=== PATIENT | male | born 1990 | race Caucasian/White ===

== ENCOUNTER 2017-06-25 20:06 | Emergency (ER) | payer SELFPAY ==
[2017-06-25] MEDS ORDERED: Ondansetron 4 MG/2 ML SDV IVPUSH ONE (20:45)
[2017-06-25] MEDS ORDERED: Sodium Chloride 0.9% 1,000 ML IV SCH (20:45)
[2017-06-25] MEDS ORDERED: HYDROmorphone 0.5 MG/0.5 ML SYRINGE IVPUSH STA ×2 (20:46→22:14)
--- NOTE | 2017-06-25 20:48 | EDM.PDOC ---
ED HPI GENERAL MEDICAL PROBLEM - General Chief Complaint: Abdominal Pain Stated Complaint: ABDOMINAL PAIN Time Seen by Provider: 06/25/17 20:31 Source of Information: Reports: Patient History Limitations: Reports: No Limitations - History of Present Illness INITIAL COMMENTS - FREE TEXT/NARRATIVE: The patient states that he developed mid-right abdominal pain around 02:00 this morning, while he was working. It migrated to his right lower quadrant around 03 :30, where it has remained. It is sharp in character. It is constant, but worse with most movements. He then developed nausea and emesis around 04:00, and has had chills on and off all day. No recent constipation, diarrhea, or urinary symptoms. No prior similar symptoms. The patient's last oral solid food was around 15:30 this afternoon. His last oral fluid intake was around 18:30 tonight. The patient does not have a PCP. Right Lower Abdomen Pain Score (Numeric/FACES): 8 - Related Data Allergies Allergy/AdvReac Type Severity Reaction Status Date / Time No Known Allergies Allergy Verified 06/25/17 20:15 Home Meds: Home Meds . [No Known Home Meds] 06/25/17 [History] Past Medical History Psychiatric History: Reports: Bipolar (untreated), Depression (untreated), PTSD (untreated) - Past Surgical History HEENT Surgical History: Reports: Oral Surgery (One wisdom tooth extracted), Tonsillectomy Social & Family History - Tobacco Use Smoking Status *Q: Current Every Day Smoker Years of Tobacco use: 8 Packs/Tins Daily: 1.5 Packs/Tins Daily Comment: Down from 3 ppd - Caffeine Use Caffeine Use: Reports: Coffee - Alcohol Use Alcohol Use History: Yes Alcohol Use Frequency: Socially - Recreational Drug Use Recreational Drug Use: Yes Drug Use in Last 12 Months: No Recreational Drug Type: Reports: Cocaine (last June 2016), Marijuana/Hashish ( last Jan 2017), Methamphetamine (last Jan 2017) - Living Situation & Occupation Living situation: Reports: Single, with Family (Mother + 2 siblings) Occupation: Employed (supervisor inventory merchandising, [employer]) ED ROS GENERAL - Review of Systems Review Of Systems: ROS reveals no pertinent complaints other than HPI. ED EXAM, GI/ABD - Physical Exam Exam: See Below Exam Limited By: No Limitations General Appearance: Alert, WD/WN, No Apparent Distress Eyes: Bilateral: Normal Appearance, EOMI Ears: Normal External Exam, Hearing Grossly Normal Nose: Normal Inspection, No Blood Throat/Mouth: Normal Inspection, Normal Lips, Normal Voice, No Airway Compromise Head: Atraumatic, Normocephalic Neck: Normal Inspection, Full Range of Motion Respiratory/Chest: No Respiratory Distress, Lungs Clear, Normal Breath Sounds, No Accessory Muscle Use Cardiovascular: Normal Peripheral Pulses, Regular Rate, Rhythm, No Edema, No Gallop, No JVD, No Murmur, No Rub GI/Abdominal Exam: Normal Bowel Sounds, Soft, No Organomegaly, No Distention, No Abnormal Bruit, No Mass, Tender (RLQ only, but Rovsing sign present), Other ( Obturator sign present. Psoas sign present. Heel drop sign positive.) (Male) Exam: Deferred Rectal (Males) Exam: Deferred Back Exam: Normal Inspection, Full Range of Motion, NT Extremities: Normal Inspection, Normal Range of Motion, No Pedal Edema, Normal Capillary Refill Neurological: Alert, Oriented, Normal Cognition, No Motor/Sensory Deficits Psychiatric: Normal Affect Skin Exam: Warm, Dry, Intact, Normal Color, No Rash Course - Vital Signs Last Recorded V/S: Last Vital Signs Temp 37.2 C 06/25/17 20:13 Pulse 78 06/25/17 20:13 Resp 18 06/25/17 20:13 BP 142/79 H 06/25/17 20:13 Pulse Ox 98 06/25/17 20:13 - Orders/Labs/Meds Orders: Active Orders 24 hr Category Date Time Status Abdomen Pelvis w Cont [CT] Stat Exams 06/25/17 20:45 Taken Sodium Chloride 0.9% [Normal Saline] 1,000 ml Med 06/25/17 20:45 Active IV ASDIRECTED Sodium Chloride 0.9% [Saline Flush] Med 06/25/17 21:40 Active 10 ml FLUSH ONETIME PRN Medication Orders Sodium Chloride (Normal Saline) 1,000 mls @ 150 mls/hr IV ASDIRECTED THU Last Admin: 06/25/17 20:54 Dose: 150 mls/hr Sodium Chloride (Saline Flush) 10 ml FLUSH ONETIME PRN PRN Reason: IV Flush Last Admin: 06/25/17 22:08 Dose: 10 ml Labs: Laboratory Tests 03/22/18 03/22/18 03/22/18 Range/Units 20:30 20:45 20:45 WBC 10.07 H (4.23-9.07) K/mm3 RBC 4.45 L (4.63-6.08) M/mm3 Hgb 13.5 L (13.7-17.5) gm/L Hct 40.1 (40.1-51.0) % MCV 90.1 (79.0-92.2) fl MCH 30.3 (25.7-32.2) pg MCHC 33.7 (32.2-35.5) g/dl RDW Std Deviation 44.1 H (35.1-43.9) fL Plt Count 316 (163-337) K/mm3 MPV 9.9 (9.4-12.3) fl Neutrophils % (Manual) 64 H (40-60) % Band Neutrophils % 1 (0-10) % Lymphocytes % (Manual) 33 (20-40) % Atypical Lymphs % 0 % Monocytes % (Manual) 1 L (2-10) % Eosinophils % (Manual) 1 (0.8-7.0) % Basophils % (Manual) 0 L (0.2-1.2) Platelet Estimate Adequate RBC Morph Comment Normal Sodium 139 (136-145) mEq/L Potassium 4.2 (3.5-5.1) mEq/L Chloride 102 (98-107) mEq/L Carbon Dioxide 27 (21-32) mEq/L Anion Gap 14.2 (5-15) BUN 18 (7-18) mg/dL Creatinine 0.9 (0.7-1.3) mg/dL Est Cr Clr Drug Dosing 131.31 mL/min Estimated GFR (MDRD) > 60 (>60) mL/min BUN/Creatinine Ratio 20.0 H (14-18) Glucose 93 (74-106) mg/dL Calcium 9.2 (8.5-10.1) mg/dL Total Bilirubin 0.3 (0.2-1.0) mg/dL AST 24 (15-37) U/L ALT 32 (16-63) U/L Alkaline Phosphatase 96 (46-116) U/L Total Protein 7.6 (6.4-8.2) g/dl Albumin 4.1 (3.4-5.0) g/dl Globulin 3.5 gm/dL Albumin/Globulin Ratio 1.2 (1-2) Lipase 96 (73-393) U/L Urine Color Yellow (Yellow) Urine Appearance Clear (Clear) Urine pH 6.0 (5.0-8.0) Ur Specific [place] 1.020 (1.005-1.030) Urine Protein Negative (Negative) Urine Glucose (UA) Negative (Negative) Urine Ketones Negative (Negative) Urine Occult Blood Negative (Negative) Urine Nitrite Negative (Negative) Urine Bilirubin Negative (Negative) Urine Urobilinogen 0.2 (0.2-1.0) Ur Leukocyte Esterase Trace H (Negative) Urine RBC 0-5 (0-5) /hpf Urine WBC 0-5 (0-5) /hpf Urine WBC Clumps Rare (NOT SEEN) /hpf Ur Epithelial Cells 0-5 (0-5) /hpf Urine Bacteria Rare (FEW) /hpf Urine Mucus Few (FEW) /hpf Meds: Medications Generic Name Dose Route Start Last Admin Trade Name Jinny PRN Reason Stop Dose Admin Sodium Chloride 1,000 mls @ 150 mls/hr 06/25/17 20:45 06/25/17 20:54 Normal Saline IV 150 mls/hr ASDIRECTED THU Administration Sodium Chloride 10 ml 06/25/17 21:40 06/25/17 22:08 Saline Flush FLUSH 10 ml ONETIME PRN Administration IV Flush Discontinued Medications Generic Name Dose Route Start Last Admin Trade Name Jinny PRN Reason Stop Dose Admin Diatrizoate Meglum/Diatrizoate Sod 90 ml 06/25/17 21:39 06/25/17 22:08 Gastrografin 37% PO 06/25/17 21:40 90 ml ONETIME ONE Administration Hydromorphone HCl 1 mg 06/25/17 20:46 06/25/17 20:58 Dilaudid IVPUSH 06/25/17 20:47 1 mg ONETIME STA Administration Hydromorphone HCl 1 mg 06/25/17 22:14 06/25/17 22:22 Dilaudid IVPUSH 06/25/17 22:15 1 mg ONETIME STA Administration Ibuprofen 600 mg 06/25/17 22:25 06/25/17 22:33 Motrin PO 06/25/17 22:26 600 mg ONETIME ONE Administration Iopamidol 125 ml 06/25/17 21:39 06/25/17 22:08 Isovue-300 (61%) IVPUSH 06/25/17 21:40 125 ml ONETIME ONE Administration Ondansetron HCl 4 mg 06/25/17 20:45 06/25/17 20:55 Zofran IVPUSH 06/25/17 20:46 4 mg ONETIME ONE Administration - Re-Assessments/Exams Free Text/Narrative Re-Assessment/Exam: 06/25/17 20:46 The patient has right lower quadrant abdominal pain that initially began as mid right abdominal pain around 02:00 this morning. He has had nausea and emesis, chills, and on examination, has tenderness in the right lower quadrant, along with Rovsing sign, obturator sign, psoas sign, and a positive heel drop sign. Clinically, the patient has a perforated appendix. I have ordered a workup including a CT scan of the abdomen and pelvis. He will receive Dilaudid, Zofran , and IV fluid, and we will keep him otherwise NPO. 06/25/17 22:22 CT of the abdomen and pelvis with oral and IV contrast is read by [facility] as "Mild mesenteric adenitis." Specifically, the Radiologist indicates that the appendix is normal. 06/25/17 22:29 I do not have the urinalysis results back yet, but presuming that the urinalysis is normal, I discussed the remainder of the workup with the patient. As above, it appears that he has mesenteric adenitis, usually caused by a virus. Recommended treatment is [id number] ibuprofen. The patient would like a note to be able to return to work this coming 06/27/2017. 06/25/17 23:28 The patient's urinalysis is normal. Departure - Departure Time of Disposition: 22:31 Disposition: Home, Self-Care 01 Condition: Fair Clinical Impression: Mesenteric adenitis - Discharge Information Referrals: PCP,None [Primary Care Provider] - Forms: ED Department Discharge, ED Return to Work/School Form Additional Instructions: You were seen in the emergency room for lower right abdominal pain, nausea, vomiting, and chills. Workup in the ER included blood work, a urinalysis, and a CT scan of your abdomen and pelvis. Your workup found that you have a condition called mesenteric adenitis, which is inflammation of your intestines, usually due to a virus. Unfortunately, there are no medicines to get rid of the virus - it will have to run its course. We recommend that you take [id number] ibuprofen, with food, as needed for abdominal discomfort. A note has been written that allows you to return to work this coming 06/27/2017. If any other problems, please do not hesitate to return to the ER. - My Orders Last 24 Hours: My Active Orders 06/25/17 20:45 Abdomen Pelvis w Cont [CT] Stat Sodium Chloride 0.9% [Normal Saline] 1,000 ml IV ASDIRECTED 06/25/17 21:40 Sodium Chloride 0.9% [Saline Flush] 10 ml FLUSH ONETIME PRN - Assessment/Plan Last 24 Hours: My Active Orders 06/25/17 20:45 Abdomen Pelvis w Cont [CT] Stat Sodium Chloride 0.9% [Normal Saline] 1,000 ml IV ASDIRECTED 06/25/17 21:40 Sodium Chloride 0.9% [Saline Flush] 10 ml FLUSH ONETIME PRN
[2017-06-25] MEDS ORDERED: Iopamidol 612 MG/ML 150 ML Bottle IVPUSH ONE (21:39)
[2017-06-25] MEDS ORDERED: Diatrizoate Meglumine/Diatrizoate Sodium 37% 120 ML Bottle PO ONE (21:39)
[2017-06-25] MEDS ORDERED: Sodium Chloride 0.9% 10 ML Syringe FLUSH PRN (21:40)
[2017-06-25] MEDS ORDERED: Ibuprofen 600 MG Tab PO ONE (22:25)
--- NOTE | 2017-06-26 08:45 | CT ---
CT abdomen and pelvis Technique: Multiple axial sections were obtained through the abdomen and pelvis. Intravenous and oral contrast was utilized. Delayed images were also obtained to the bladder. Comparison: No prior abdominal imaging. Findings: Visualized lung bases show nothing acute. Liver shows no focal parenchymal abnormality. Spleen appears within normal limits. Soft tissue nodule seen anterior along the superior spleen compatible with accessory splenic tissue. Adrenal glands show no nodule. Pancreas is within normal limits. Kidneys show symmetric contrast enhancement without hydronephrosis. Possible small nonobstructing stone is noted within the left kidney with small adjacent cortical scar. Delayed images show contrast excretion into both ureters as well as contrast noted within the bladder. Aorta shows no aneurysmal dilatation. No retroperitoneal adenopathy is seen. Slightly prominent lymph nodes noted within the mesentery particularly within the right lower quadrant. Appendix is seen which appears normal. No pelvic mass or adenopathy is seen. No free fluid is seen. Minimal increased stool is noted throughout the colon. Bone window settings were reviewed which appear within normal limits for the patient's age. Impression: 1. Slight increased stool throughout the colon. 2. Mildly prominent mesenteric lymph nodes within the right lower abdomen raising the possibility of so-called mesenteric adenitis. 3. Possible small nonobstructing stone within left kidney with small adjacent cortical scar. 4. No additional abnormality is identified on CT study of the abdomen and pelvis. Diagnostic code #3 Agree with preliminary report issued by [facility] ([facility] preliminary report dictated on 06/25/17, 11:19 PM Central Time)
== END 2017-06-25 23:36 | disposition home or self-care (01) ==
LOC: JD.ED 20:06
DX: I88.0 Nonspecific mesenteric lymphadenitis (principal); F17.210 Nicotine dependence, cigarettes, uncomplicated
CPT/HCPCS: 36415; 74177; 80053; 81001; 83690; 85025; 96361; 96374; 96375; 96376; 99284; A9270; J1170; J2405; J7040; J7050; Q9963; Q9967

== ENCOUNTER 2017-08-27 23:11 | Emergency (ER) | payer OTHER ==
--- NOTE | 2017-08-28 01:09 | EDM.PDOC ---
ED HPI GENERAL MEDICAL PROBLEM - General Chief Complaint: Upper Extremity Injury/Pain Stated Complaint: RIGHT HAND INJURIED AT WORK Time Seen by Provider: 08/28/17 00:10 Source of Information: Reports: Patient History Limitations: Reports: No Limitations - History of Present Illness INITIAL COMMENTS - FREE TEXT/NARRATIVE: 26-year-old male presents for evaluation and treatment of injury to the right hand. Patient reports he was at work. He was working with a pressurized hose. States that part of the hose struck his right dorsal hand. Primarily complaining of pain to the fourth and fifth metatarsals. This occurred around 4 hours prior to arrival in the ER. Patient took 800 mg of ibuprofen for pain relief. reports pain is a 6 out of 10 right now. No obvious deformity. Recommend area to the right dorsal hand. Reports associated numbness and tingling to the right side of his hand. Patient is left handed. Onset: Today Location: Reports: Upper Extremity, Right Right Hand Pain Score (Numeric/FACES): 6 - Related Data Allergies Allergy/AdvReac Type Severity Reaction Status Date / Time No Known Allergies Allergy Verified 06/25/17 20:15 Home Meds: Home Meds . [No Known Home Meds] 06/25/17 [History] Past Medical History Musculoskeletal History: Reports: Other (See Below) Other Musculoskeletal History: broken arm Psychiatric History: Reports: Bipolar, Depression, PTSD - Past Surgical History HEENT Surgical History: Reports: Oral Surgery, Tonsillectomy Social & Family History - Tobacco Use Smoking Status *Q: Unknown Ever Smoked - Caffeine Use Caffeine Use: Reports: None - Recreational Drug Use Recreational Drug Use: No - Living Situation & Occupation Living situation: Reports: Single, with Family (Mother + 2 siblings) Occupation: Employed ([employer]) Review of Systems - Review of Systems Review Of Systems: See Below Musculoskeletal: Reports: Hand Pain (Right), Other (Reports decreased range of motion to the right hand) Skin: Reports: Erythema (No obvious bruising or open wounds. Reddened area to the right dorsal hand over the fourth and fifth metacarpals). Denies: Wound Neurological: Reports: Numbness (Right medial hand), Tingling (Right medial hand ) ED EXAM, GENERAL - Physical Exam Exam: See Below Exam Limited By: No Limitations General Appearance: Alert, WD/WN, No Apparent Distress Respiratory/Chest: No Respiratory Distress Cardiovascular: Normal Peripheral Pulses Peripheral Pulses: 1+: Radial (R) Extremities: Normal Inspection (No obvious deformity to the right hand), Limited Range of Motion (Patient is able to make a fist. Reports discomfort with flexion of the fifth finger), Other (Mild swelling to the right hand over the fourth and fifth metacarpals, approximately 2 cm x 1 cm area of erythema over the dorsal right hand, no obvious bruising or open wounds. ). No: Increased Warmth Neurological: Alert, Oriented, Normal Cognition, No Motor/Sensory Deficits ( Reports good sensation to light touch to the right hand) Psychiatric: Normal Affect, Normal Mood Skin Exam: Warm, Dry, Normal Color Course - Vital Signs Last Recorded V/S: Last Vital Signs Temp 36.7 C 08/27/17 23:50 Pulse 66 08/27/17 23:50 Resp 16 08/27/17 23:50 BP 133/72 08/27/17 23:50 Pulse Ox 96 08/27/17 23:50 - Orders/Labs/Meds Orders: Active Orders 24 hr Category Date Time Status Hand Comp Min 3V Rt [CR] Stat Exams 08/28/17 00:34 Taken - Re-Assessments/Exams Free Text/Narrative Re-Assessment/Exam: 08/28/17 01:10 I reviewed the x-ray results with the patient. No obvious fracture appreciated. Recommend symptomatically. He continues to have discomfort recommend follow-up with occupational health in about 1 week. Discharge instructions as documented. Departure - Departure Time of Disposition: 01:15 Disposition: Home, Self-Care 01 Condition: Fair Clinical Impression: Hand injury, Traumatic ecchymosis of hand - Discharge Information Instructions: Hand Pain Referrals: PCP,None [Primary Care Provider] - Sky Gabriel MD [Physician] - Forms: ED Department Discharge Additional Instructions: Light duty, no use of right hand 3 days. [id number] Tylenol or Motrin as needed for pain relief. Follow up with occupational health if your symptoms have not improved much within one week. Recommend Dr. Harvey sommer [place]. Call [phone] Gabriel at [facility]. Use plenty of ice to the hand. Recommend Devon bandage the hand. Please return to the ER if your symptoms change or worsen. - My Orders Last 24 Hours: My Active Orders 08/28/17 00:34 Hand Comp Min 3V Rt [CR] Stat - Assessment/Plan Last 24 Hours: My Active Orders 08/28/17 00:34 Hand Comp Min 3V Rt [CR] Stat
--- NOTE | 2017-08-28 10:43 | CR ---
Right hand: Four views of the right hand were obtained. Comparison: No prior study. Joint spaces are maintained. Small cyst is noted within the middle phalanx of the fourth digit which is felt to be incidental and benign. No acute fracture, dislocation or other bony abnormality is seen. Impression: 1. Finding which is felt to be incidental as noted above. No acute bony abnormality is identified. Diagnostic code #1
== END 2017-08-28 01:29 | disposition home or self-care (01) ==
LOC: JD.ED 23:11
DX: S60.221A Contusion of right hand, initial encounter (principal); W22.8XXA Striking against or struck by other objects, initial encounter
CPT/HCPCS: 73130-26-RT; 73130-RT; 99282; 99283